=== PATIENT | male | born 1940 | race Caucasian/White ===

== ENCOUNTER → 2021-08-20 | Outpatient (CLI) | payer MEDICARE, OTHER | LOC: CARDREHAB 10:26 | DX: R00.8 Other abnormalities of heart beat (principal) | CPT/HCPCS: A9500 ==

== ENCOUNTER → 2022-02-22 | Outpatient (CLI) | payer MEDICARE, OTHER | LOC: VAS 12:51 | DX: I49.8 Other specified cardiac arrhythmias (principal) ==

== ENCOUNTER 2023-03-28 08:13 | Emergency (ER) | payer MEDICARE, OTHER ==
[~2023-03-28] VITALS: Ht 170.2 cm; Wt 57.4 kg
[2023-03-28] MEDS ORDERED: ADVAIR DISKUS1 DSK IH (08:42)
[2023-03-28] MEDS ORDERED: LEVOTHYROXINE0.05 MG PO (08:42)
[2023-03-28] MEDS ORDERED: METOPROLOL SUCC25 M1 PO (08:42)
[2023-03-28] MEDS ORDERED: CALCIUM/MAGNESI1 TA8 PO (08:43)
[2023-03-28] MEDS ORDERED: VITAMIN D PO (08:43)
[2023-03-28] MEDS ORDERED: FISH OIL 1,0001 EAC1 PO (08:44)
[2023-03-28] MEDS ORDERED: MULTIVITAMIN1 EACH PO (08:44)
[2023-03-28] MEDS ORDERED: PRESERVISION A1 EACH PO (08:45)
[2023-03-28 10:20] VITALS: BP 149/56
== END 2023-03-28 10:25 | disposition home or self-care (01) ==
LOC: ED 08:13
DX: S00.81XA Abrasion of other part of head, initial encounter (principal); W22.8XXA Striking against or struck by other objects, initial encounter; Y92.000 Kitchen of unspecified non-institutional (private) residence as the place of occurrence of the external cause

== ENCOUNTER → 2023-06-14 | Outpatient (CLI) | payer MEDICARE, OTHER ==
[~2023-06-14] MED LIST: ADVAIR DISKUS1 DSK IH; CALCIUM/MAGNESI1 TA8 PO; FISH OIL 1,0001 EAC1 PO; LEVOTHYROXINE0.05 MG PO; METOPROLOL SUCC25 M1 PO; MULTIVITAMIN1 EACH PO; PRESERVISION A1 EACH PO; VITAMIN D PO
== END ==
LOC: RAD 12:10
DX: R63.4 Abnormal weight loss (principal)

== ENCOUNTER → 2023-09-11 | Outpatient (CLI) | payer MEDICARE, OTHER ==
[~2023-09-11] MED LIST changes: +Iohexol 300 - 100 ML VIAL IV ONE
== END ==
LOC: RAD 09:36
DX: J84.10 Pulmonary fibrosis, unspecified (principal); J90 Pleural effusion, not elsewhere classified
CPT/HCPCS: Q9967

== ENCOUNTER → 2024-05-17 | Outpatient (CLI) | payer MEDICARE, OTHER ==
[~2024-05-17] MED LIST changes: -Iohexol 300 - 100 ML VIAL IV ONE
== END ==
LOC: RAD 08:30
DX: M47.816 Spondylosis without myelopathy or radiculopathy, lumbar region (principal); M48.061 Spinal stenosis, lumbar region without neurogenic claudication; M48.07 Spinal stenosis, lumbosacral region

== ENCOUNTER 2024-06-07 13:24 | Emergency (ER) | payer MEDICARE, OTHER ==
[~2024-06-07] VITALS: Ht 170.2 cm; Wt 52.3 kg
[2024-06-07 13:32] VITALS: BP 120/53
[2024-06-07] MEDS ORDERED: AZELASTINE137 MCG/A1 NS (13:49)
[2024-06-07] MEDS ORDERED: NASAL SPRAY30 ML NS (13:51)
[2024-06-07 14:15] LABS: URINE WBC 0 /hpf (0-3)
[2024-06-07 14:56] LABS: URINE APPEARANCE CLEAR (CLEAR); URINE BILIRUBIN NEGATIVE (NEGATIVE); URINE BLOOD NEGATIVE (NEGATIVE); URINE COLOR YELLOW (YELLOW); URINE GLUCOSE NEGATIVE (NEGATIVE); URINE KETONE NEGATIVE (NEGATIVE); URINE LEUKOCYTE ESTERASE NEGATIVE (NEGATIVE); URINE NITRATE NEGATIVE (NEGATIVE); URINE PROTEIN(semi-quant) NEGATIVE (NEGATIVE)
== END 2024-06-07 15:15 | disposition home or self-care (01) ==
LOC: ED 13:24
PROVIDERS: Physician Assistant
DX: R39.198 Other difficulties with micturition (principal)

== ENCOUNTER 2024-06-08 09:45 | Emergency (ER) | payer MEDICARE, OTHER ==
[~2024-06-08] VITALS: Wt 52.3 kg
[~2024-06-08 09:45] MED LIST changes: +AZELASTINE137 MCG/A1 NS; +NASAL SPRAY30 ML NS
[2024-06-08 10:22] LABS: BASO # 0.02 K/mm3 (0.02-0.10); EOS # 0.15 K/mm3 (0.04-0.40); EOS % 2.8 % (0.0-4.0); HEMATOCRIT 35.3 % (42.0-52.0); HEMOGLOBIN 11.7 g/dL (13.5-18.0); LYMPH# 1.24 K/mm3 (1.50-4.00); MEAN CELL VOLUME 84 fl (78-100); MEAN CORPUSCULAR HEMOGLOBIN 28 pg (27-31); MEAN CORPUSCULAR HGB CONC 33 g/dL (33-37); MEAN PLATELET VOLUME 9.8 fl (7.4-10.4); MONO # 0.48 K/mm3 (0.20-0.80); NEU # 3.38 K/mm3 (1.40-6.50); PLATELET COUNT 228 K/mm3 (130-400); RED BLOOD COUNT 4.19 M/mm3 (4.20-5.60); WHITE BLOOD COUNT 5.3 K/mm3 (4.8-10.8)
[2024-06-08 10:38] LABS: ALBUMIN 3.5 g/dL (3.4-4.8)
[2024-06-08 10:40] LABS: CALCIUM 9.1 mg/dL (8.3-10.5)
[2024-06-08 10:41] LABS: TOTAL PROTEIN 6.2 g/dL (6.2-8.1)
[2024-06-08 10:43] LABS: TOTAL BILIRUBIN 1.2 mg/dL (0.2-1.2)
[2024-06-08 11:38] VITALS: BP 140/70
== END 2024-06-08 11:40 | disposition home or self-care (01) ==
LOC: ED 09:45
PROVIDERS: Family Medicine
DX: N40.0 Benign prostatic hyperplasia without lower urinary tract symptoms (principal); R35.1 Nocturia; R10.9 Unspecified abdominal pain

== ENCOUNTER 2024-06-20 18:11 | Emergency (ER) | payer MEDICARE, OTHER ==
[~2024-06-20] VITALS: Ht 170.2 cm; Wt 48.6 kg
[2024-06-20 20:04] LABS: PH-URINE 5.5 (5.0 - 8.0); URINE APPEARANCE CLEAR (CLEAR); URINE BILIRUBIN NEGATIVE (NEGATIVE); URINE COLOR YELLOW (YELLOW); URINE GLUCOSE NEGATIVE (NEGATIVE); URINE KETONE NEGATIVE (NEGATIVE); URINE PROTEIN(semi-quant) NEGATIVE (NEGATIVE)
[2024-06-20 20:05] LABS: URINE BLOOD NEGATIVE (NEGATIVE); URINE LEUKOCYTE ESTERASE NEGATIVE (NEGATIVE); URINE MUCUS PRESENT (NOT PRESENT); URINE NITRATE NEGATIVE (NEGATIVE)
[2024-06-20 20:38] VITALS: BP 113/55
== END 2024-06-20 20:38 | disposition home or self-care (01) ==
LOC: ED 18:11
PROVIDERS: Nurse Practitioner
DX: N39.43 Post-void dribbling (principal)

== ENCOUNTER 2024-06-26 22:12 | Emergency (ER) | payer MEDICARE, OTHER ==
[~2024-06-26] VITALS: Wt 48.6 kg
[2024-06-26 22:19] VITALS: BP 123/61
[2024-06-26 22:33] LABS: BASO # 0.05 K/mm3 (0.02-0.10); EOS # 0.07 K/mm3 (0.04-0.40); EOS % 1.3 % (0.0-4.0); HEMATOCRIT 29.6 % (42.0-52.0); HEMOGLOBIN 10.3 g/dL (13.5-18.0); LYMPH# 0.99 K/mm3 (1.50-4.00); MEAN CELL VOLUME 86 fl (78-100); MEAN CORPUSCULAR HEMOGLOBIN 30 pg (27-31); MEAN CORPUSCULAR HGB CONC 35 g/dL (33-37); MONO # 0.52 K/mm3 (0.20-0.80); NEU # 3.92 K/mm3 (1.40-6.50); PLATELET COUNT 264 K/mm3 (130-400); RED BLOOD COUNT 3.43 M/mm3 (4.20-5.60); WHITE BLOOD COUNT 5.6 K/mm3 (4.8-10.8)
[2024-06-26] MEDS ORDERED: CELEBREX 1100 MG/CAP PO (22:38)
[2024-06-26 22:40] LABS: ALBUMIN 3.3 g/dL (3.4-4.8)
[2024-06-26 22:42] LABS: CALCIUM 8.5 mg/dL (8.3-10.5)
[2024-06-26 22:43] LABS: TOTAL PROTEIN 5.9 g/dL (6.2-8.1)
[2024-06-26 22:45] LABS: TOTAL BILIRUBIN 0.5 mg/dL (0.2-1.2)
[2024-06-26] MEDS ORDERED: NS 1,000 ML IV SCH (22:45)
[2024-06-26 23:33] LABS: PH-URINE 5.5 (5.0 - 8.0); URINE APPEARANCE CLOUDY (CLEAR); URINE BILIRUBIN NEGATIVE (NEGATIVE); URINE COLOR YELLOW (YELLOW); URINE GLUCOSE NEGATIVE (NEGATIVE); URINE KETONE TRACE (NEGATIVE); URINE PROTEIN(semi-quant) 2+ (NEGATIVE)
[2024-06-26 23:34] LABS: URINE BLOOD 3+ (NEGATIVE); URINE LEUKOCYTE ESTERASE TRACE (NEGATIVE); URINE NITRATE NEGATIVE (NEGATIVE)
[2024-06-26 23:35] LABS: URINE MUCUS PRESENT (NOT PRESENT)
[2024-06-28] MEDS ORDERED: DICLOFENAC SODI50 GM TP (07:24)
[2024-06-28] MEDS ORDERED: MELOXICAM7.5 MG PO (07:27)
== END 2024-06-27 | disposition other institution (70) ==
LOC: ED 22:12
PROVIDERS: Family Medicine
DX: E87.1 Hypo-osmolality and hyponatremia (principal)
CPT/HCPCS: J7030

== ENCOUNTER 2024-06-26 23:13 | Inpatient (IN) | payer MEDICARE, OTHER ==
[~2024-06-26] VITALS: Ht 170.2 cm; Wt 52.0 kg
[~2024-06-26 23:13] MED LIST changes: +CELEBREX 1100 MG/CAP PO
[2024-06-26] MEDS ORDERED: Acetaminophen 325 MG TAB PO PRN (23:30)
[2024-06-26] MEDS ORDERED: NS 1,000 ML IV SCH (23:45)
[2024-06-27] VITALS (7 sets, daily range): BP systolic 114–143; BP diastolic 52–62
[2024-06-27 02:14] LABS: ALBUMIN 2.7 g/dL (3.4-4.8)
[2024-06-27 02:15] LABS: CALCIUM 7.7 mg/dL (8.3-10.5)
[2024-06-27 02:17] LABS: TOTAL PROTEIN 4.9 g/dL (6.2-8.1)
[2024-06-27 02:18] LABS: TOTAL BILIRUBIN 0.4 mg/dL (0.2-1.2)
[2024-06-27] MEDS ORDERED: Celecoxib 100 MG CAP PO SCH (09:00)
[2024-06-27] MEDS ORDERED: Docusate Sodium 100 MG CAP PO SCH (09:00)
[2024-06-27] MEDS ORDERED: Formoterol 20 MCG,Budesonide 0.5 MG IH SCH (09:00)
[2024-06-27] MEDS ORDERED: Cholecalciferol (Vit D3) 25 MCG (1,000 Units) TAB PO SCH (09:00)
[2024-06-27 16:12] LABS: CALCIUM 7.2 mg/dL (8.3-10.5)
[2024-06-27 21:36] LABS: PH-URINE 5.5 (5.0 - 8.0); URINE APPEARANCE CLEAR (CLEAR); URINE BILIRUBIN NEGATIVE (NEGATIVE); URINE BLOOD TRACE-LYSED (NEGATIVE); URINE COLOR YELLOW (YELLOW); URINE GLUCOSE NEGATIVE (NEGATIVE); URINE KETONE NEGATIVE (NEGATIVE); URINE LEUKOCYTE ESTERASE NEGATIVE (NEGATIVE); URINE NITRATE NEGATIVE (NEGATIVE); URINE PROTEIN(semi-quant) NEGATIVE (NEGATIVE)
[2024-06-28 02:31] VITALS: BP 129/61
[2024-06-28 06:48] LABS: BASO # 0.03 K/mm3 (0.02-0.10); EOS # 0.08 K/mm3 (0.04-0.40); EOS % 2.3 % (0.0-4.0); HEMATOCRIT 27.6 % (42.0-52.0); HEMOGLOBIN 9.2 g/dL (13.5-18.0); LYMPH# 0.94 K/mm3 (1.50-4.00); MEAN CELL VOLUME 87 fl (78-100); MEAN CORPUSCULAR HEMOGLOBIN 29 pg (27-31); MEAN CORPUSCULAR HGB CONC 33 g/dL (33-37); MONO # 0.36 K/mm3 (0.20-0.80); NEU # 2.12 K/mm3 (1.40-6.50); PLATELET COUNT 254 K/mm3 (130-400); RED BLOOD COUNT 3.19 M/mm3 (4.20-5.60); RED CELL DISTRIBUTION WIDTH 15.6 % (11.5-14.5); WHITE BLOOD COUNT 3.5 K/mm3 (4.8-10.8)
[2024-06-28 06:54] LABS: ALBUMIN 2.8 g/dL (3.4-4.8)
[2024-06-28 06:55] LABS: CALCIUM 7.9 mg/dL (8.3-10.5)
[2024-06-28 06:56] LABS: TOTAL PROTEIN 5.1 g/dL (6.2-8.1)
[2024-06-28 06:58] LABS: TOTAL BILIRUBIN 0.5 mg/dL (0.2-1.2)
[2024-06-28 07:20] VITALS: BP 120/56
[2024-06-28] MEDS ORDERED: DICLOFENAC SODI50 GM TP (07:24)
[2024-06-28] MEDS ORDERED: MELOXICAM7.5 MG PO (07:27)
[2024-06-28] MEDS ORDERED: Meloxicam 7.5 MG TAB PO SCH (09:00)
== END 2024-06-28 10:57 | disposition home or self-care (01) | DRG 641 ==
LOC: MED/SURG 23:13
PROVIDERS: Family Medicine; ADMIT Family Medicine
DX: E87.1 Hypo-osmolality and hyponatremia (principal); E03.9 Hypothyroidism, unspecified; J30.9 Allergic rhinitis, unspecified; M19.90 Unspecified osteoarthritis, unspecified site; R53.81 Other malaise; I50.9 Heart failure, unspecified; E87.70 Fluid overload, unspecified
CPT/HCPCS: J7030

== ENCOUNTER 2024-07-07 09:04 | Emergency (ER) | payer MEDICARE, OTHER ==
[~2024-07-07] VITALS: Ht 170.2 cm; Wt 49.1 kg
[~2024-07-07 09:04] MED LIST changes: +DICLOFENAC SODI50 GM TP; +MELOXICAM7.5 MG PO
[2024-07-07] MEDS ORDERED: Ondansetron 4 MG/2 ML VIAL IV ONE (09:15)
[2024-07-07 09:42] LABS: BASO # 0.02 K/mm3 (0.02-0.10); EOS # 0.58 K/mm3 (0.04-0.40); EOS % 9.8 % (0.0-4.0); HEMOGLOBIN 11.1 g/dL (13.5-18.0); LYMPH# 0.98 K/mm3 (1.50-4.00); MEAN CELL VOLUME 86 fl (78-100); MEAN CORPUSCULAR HEMOGLOBIN 29 pg (27-31); MEAN CORPUSCULAR HGB CONC 34 g/dL (33-37); MEAN PLATELET VOLUME 9.7 fl (7.4-10.4); MONO # 0.41 K/mm3 (0.20-0.80); PLATELET COUNT 251 K/mm3 (130-400); RED BLOOD COUNT 3.82 M/mm3 (4.20-5.60); RED CELL DISTRIBUTION WIDTH 14.5 % (11.5-14.5); WHITE BLOOD COUNT 5.9 K/mm3 (4.8-10.8)
[2024-07-07 09:48] LABS: ALBUMIN 3.1 g/dL (3.4-4.8)
[2024-07-07 09:49] LABS: CALCIUM 8.1 mg/dL (8.3-10.5)
[2024-07-07 09:50] LABS: TOTAL PROTEIN 5.9 g/dL (6.2-8.1)
[2024-07-07 09:52] LABS: TOTAL BILIRUBIN 0.7 mg/dL (0.2-1.2)
[2024-07-07] MEDS ORDERED: NS 1,000 ML IV SCH ×2 (10:00→10:45)
[2024-07-07 10:59] VITALS: BP 157/75
[2024-07-07] MEDS ORDERED: Albuterol/Ipratropium 3 MG-0.5 MG/3 ML Neb Soln IH ONE (11:00)
== END 2024-07-07 11:41 | disposition short-term general hospital (02) ==
LOC: ED 09:04
PROVIDERS: Family Medicine
DX: E87.1 Hypo-osmolality and hyponatremia (principal)
CPT/HCPCS: J0780; J2405; J7030; J7120